=== PATIENT | female | born 1935 | race Caucasian/White ===

== ENCOUNTER 2017-04-28 18:07 | Emergency (ER) | payer OTHER ==
[~2017-04-28] VITALS: Ht 152.4 cm; Wt 66.1 kg
[2017-04-28] MEDS ORDERED: KEFLEX500 MG PO (19:39)
[2017-04-28 19:50] VITALS: BP 164/97
== END 2017-04-28 19:51 | disposition home or self-care (01) ==
LOC: EME 18:07
DX: L03.113 Cellulitis of right upper limb (principal); S60.211A Contusion of right wrist, initial encounter; Z88.0 Allergy status to penicillin
CPT/HCPCS: 73110; 99281; 99284